=== PATIENT | female | born 1960 | race Caucasian/White ===

== ENCOUNTER 2016-10-17 09:47 | Day surgery (SDC) | payer OTHER ==
[~2016-10-17] VITALS: Ht 157.5 cm; Wt 66.3 kg
[2016-10-17 11:09] VITALS: Ht 157.5 cm; Wt 66.3 kg
[2016-10-17] MEDS ORDERED: HYD25 PO (11:15)
[2016-10-17 11:41] VITALS: BP 120/58; PULSE 67; RESP 22
[2016-10-17] MEDS ORDERED: MIDAZOLAM 1 MG/ML 2 ML INJ ONE ×2 (12:15→12:16)
[2016-10-17] MEDS ORDERED: FENTAnyl 50 MCG/ML VIAL ONE (12:15)
--- NOTE | 2016-10-17 12:26 | GILP ---
DATE OF PROCEDURE: 10/17/2016 NAME OF PROCEDURE: Colonoscopy. SURGEON: Uma Kuhn MD. PREOPERATIVE DIAGNOSIS: Screening colonoscopy. POSTOPERATIVE DIAGNOSES: 1. Colonoscopy all the way to the cecum. 2. Internal hemorrhoids. 3. No colon neoplasm was identified. INDICATION FOR THE PROCEDURE: Ms. Lucita Hicks is a 55-year-old female patient who was scheduled fo r screening colonoscopy. The procedure and possible complications are well explained to the patient. She understood and cons ented to the procedure. DESCRIPTION OF PROCEDURE: Under the influence of fentanyl and Versed, the colonoscope was carefully introduced in the rectum and under direct vision, it was advanced all the way to the cecum. FINDINGS: The patient had internal hemorrhoids. No colon neoplasm was identified. She tolerated the procedure very well and there was no complication from the procedure. At the end of the procedures, she was awake with stable vital signs, and she was discharged home to the care of her family. IMPRESSION: 1. Colonoscopy all the way to the cecum. 2. Internal hemorrhoids. 3. No colon neoplasm was identified. PLAN: Next screening colonoscopy in 10 years. Dictated By: UMA CHEEK/MORENITA Conf#: [id number] DID#: [id number]
[2016-10-17 12:35] VITALS: BP 134/68; RESP 20
== END 2016-10-17 16:38 | disposition home or self-care (01) ==
LOC: GIL 09:47
PROVIDERS: ATTEND Internal Medicine Gastroenterology
DX: Z12.11 Encounter for screening for malignant neoplasm of colon (principal); K64.8 Other hemorrhoids; I10 Essential (primary) hypertension
CPT/HCPCS: 45378; J2250; J3010